=== PATIENT | male | born 1955 | race Caucasian/White ===

== ENCOUNTER 2017-03-09 14:00 | Outpatient (CLI) | payer OTHER ==
[~2017-03-09] VITALS: Ht 179.1 cm; Wt 90.3 kg
[~2017-03-09 14:00] MED LIST: ALBU8.5H4 IH; AMOX-358 PO; ASPI-875 PO; ATR20T PO; CARV3.122 PO; CLPD75T PO; GUAI-653 PO; HYDR-3062 PO; LORA10CA PO; OMG1KC PO; RANI300T4 PO; SIMV80TA3 PO
[2017-03-09] MEDS ORDERED: ASPI-999 PO (14:21)
[2017-03-09] MEDS ORDERED: RANI300T4 PO (14:21)
[2017-03-09] MEDS ORDERED: OMG1KC PO (14:21)
[2017-03-09] MEDS ORDERED: CARV3.122 PO (14:21)
[2017-03-09] MEDS ORDERED: ATOR40TA70 PO (14:21)
== END 2017-03-09 14:45 ==
LOC: PREOP 14:00
PROVIDERS: ATTEND Surgery
DX: Z01.818 Encounter for other preprocedural examination (principal)

== ENCOUNTER 2017-03-15 08:29 | Day surgery (SDC) | payer OTHER ==
[~2017-03-15] VITALS: Ht 179.1 cm; Wt 90.3 kg
[~2017-03-15 08:29] MED LIST changes: +ASPI-999 PO; +ATOR40TA70 PO
--- OUTSIDE RECORDS SUMMARY | 2017-03-15 08:33 | XMS REPORT ---
Author Author REZA HIDALGO Organization [employer] Address Unknown Phone Unavailable Care Team Providers Care Crime Specialist Name Role Phone REZA HIDALGO CP Unavailable Allergies No Known Allergies Problems Problem Type Condition Code Onset Dates Condition Status Problem Acute bronchitis 466.0 Active Problem Counseling on substance use and abuse V65.42 Active Problem Lateral epicondylitis of elbow 726.32 Active Problem Actinic keratosis 702.0 Active Problem Rash and other nonspecific skin eruption 782.1 Active Problem Other, multiple, and unspecified sites, insect bite, nonvenomous, infected 919.5 Active Problem Pain in joint, lower leg 719.46 Active Medications No Known Medications Results No Known Results Summary Purpose eClinicalWorks Submission
--- OUTSIDE RECORDS SUMMARY | 2017-03-15 08:33 | XMS REPORT ---
Author Author CHANEL KIDD Organization [employer] Address Unknown Phone Unavailable Care Team Providers Care Base Wad Operator Adjuster Name Role Phone CHANEL KIDD CP Unavailable Allergies No Known Allergies Problems Problem Type Condition ICD-9 Code Onset Dates Condition Status Assessment Dental examination V72.2 Active Problem Acute bronchitis 466.0 Active Problem Counseling on substance use and abuse V65.42 Active Problem Lateral epicondylitis of elbow 726.32 Active Problem Actinic keratosis 702.0 Active Problem Rash and other nonspecific skin eruption 782.1 Active Problem Other, multiple, and unspecified sites, insect bite, nonvenomous, infected 919.5 Active Problem Pain in joint, lower leg 719.46 Active Medications No Known Medications Procedures Procedure Coding System Code Date INTRAORL-PERIAPICAL 1 FILM 13153 CPT-4 D0220 Dec 12, 2014 EXTRAC ERUPTED TOOTH/EXPOSED ROOT CPT-4 D7140 Dec 12, 2014 LTD ORAL EVALUATION - PROBLEM FOCUS CPT-4 D0140 Dec 12, 2014 Results No Known Results Summary Purpose [employer]ClinicalWorks Submission
--- OUTSIDE RECORDS SUMMARY | 2017-03-15 08:33 | XMS REPORT ---
Author Author ROBERT Garcia Organization [facility] Address Unknown Care Team Providers Care Wheel Borer Name Role Phone Jose Unavailable PROBLEMS Type Condition ICD9-CM Code ILF91-SP Code Onset Dates Condition Status SNOMED Code Problem Counseling on substance use and abuse V65.42 Active 760245763 Problem Acute bronchitis 466.0 Active 62621752 Problem Lateral epicondylitis of elbow 726.32 Active 707258420 Problem Rash and other nonspecific skin eruption 782.1 Active 027351265 Problem Other, multiple, and unspecified sites, insect bite, nonvenomous, infected 919.5 Active 697628598 Problem Actinic keratosis 702.0 Active 358610 Problem Pain in joint, lower leg 719.46 Active 896941392 ALLERGIES No Known Allergies SOCIAL HISTORY Never Assessed PLAN OF CARE Activity Details Follow Up prn Reason:possible TE (pt hasn't decided on which option) sjf VITAL SIGNS Height 70 in 2016-05-18 Blood pressure systolic 141 mmHg 2016-05-18 Blood pressure diastolic 92 mmHg 2016-05-18 MEDICATIONS Medication Instructions Dosage Frequency Start Date End Date Duration Status Fish Oil 3 times per day Oct, Active Keflex 500 MG Orally 4 times a day 1 capsule 6h August, 10 days Active Mobic 15 MG Orally Once a day take 1 Tablet by Oral route 1 time per day 24h Jul, Active Aspirin Active Amoxicillin 500 MG Orally Four times a day 1 capsule 6h May, May, 7 days Active Lipitor 80 mg take 1 tablet (80 mg) by oral route once daily Dec, Active RESULTS No Results PROCEDURES Procedure Date Ordered Result Body Site LTD ORAL EVALUATION - PROBLEM FOCUS May 18, 2016 INTRAORL-PERIAPICAL 1 FILM 47591 May 18, 2016 IMMUNIZATIONS No Known Immunizations MEDICAL (GENERAL) HISTORY Type Description Date Medical History CARDIAC STENTS Medical History ARTHRITIS Medical History pt is taking prostate med. Surgical History stents were put into heart (pt believe thats how long its been) 2012 Surgical History colonoscapy and polup removed Mar 2016
--- OUTSIDE RECORDS SUMMARY | 2017-03-15 08:33 | XMS REPORT ---
Author Author REZA HIDALGO Organization [employer] Address Unknown Phone Unavailable Care Team Providers Care Treating And Pumping Supervisor Name Role Phone REZA HIDALGO CP Unavailable Allergies No Known Allergies Problems Problem Type Condition Code Onset Dates Condition Status Assessment Cellulitis and abscess of digit 681.9 Active Problem Acute bronchitis 466.0 Active Problem Counseling on substance use and abuse V65.42 Active Problem Lateral epicondylitis of elbow 726.32 Active Problem Actinic keratosis 702.0 Active Problem Rash and other nonspecific skin eruption 782.1 Active Problem Other, multiple, and unspecified sites, insect bite, nonvenomous, infected 919.5 Active Problem Pain in joint, lower leg 719.46 Active Medications Medication Code System Code Instructions Start Date End Date Status Dosage [facility] [address]-45 15 MG Orally Once a day July 27, 2013 take 1 Tablet by Oral route 1 time per day Results No Known Results Summary Purpose eClinicalWorks Submission
--- OUTSIDE RECORDS SUMMARY | 2017-03-15 08:34 | XMS REPORT | Continuity of Care Document ---
Author Author Formerly [facility] Address Unknown Phone Unavailable Allergies Active Description Code Type Severity Reaction Onset Reported/Identified Relationship to Patient Clinical Status Yes No Known Drug Allergies [id number] Drug Allergy Unknown N/ A 03/18/2016 Medications Problems Date Dx Coded Attending Type Code Diagnosis Diagnosed By 03/17/2009 724.5 BACKACHE, UNSPECIFIED 03/17/2009 ROBERT VALDEZ DO 724.5 BACKACHE, UNSPECIFIED 03/17/2009 ROBERT VALDEZ DO 724.5 BACKACHE, UNSPECIFIED 03/17/2009 REZA HIDALGO APRN 724.5 BACKACHE, UNSPECIFIED 03/17/2009 REZA HIDALGO APRN 724.5 BACKACHE, UNSPECIFIED 04/15/2009 724.2 LUMBAGO 04/15/2009 ROBERT VALDEZ DO 724.2 LUMBAGO 04/15/2009 ROBERT VALDEZ DO 724.2 LUMBAGO 04/15/2009 REZA HIDALGO APRN 724.2 LUMBAGO 04/15/2009 REZA HIDALGO APRN 724.2 LUMBAGO 11/01/2011 719.46 PAIN IN JOINT INVOLVING LOWER LEG 11/01/2011 ROBERT VALDEZ DO 719.46 PAIN IN JOINT INVOLVING LOWER LEG 11/01/2011 ROBERT VALDEZ DO 719.46 PAIN IN JOINT INVOLVING LOWER LEG 11/01/2011 REZA HIDALGO APRN 719.46 PAIN IN JOINT INVOLVING LOWER LEG 11/01/2011 REZA HIDALGO APRN 719.46 PAIN IN JOINT INVOLVING LOWER LEG 05/14/2012 Ot 272.4 HYPERLIPIDEMIA NEC/NOS 05/14/2012 Ot 305.1 TOBACCO USE DISORDER 05/14/2012 Ot 397.0 TRICUSPID VALVE DISEASE 05/14/2012 Ot 401.9 HYPERTENSION NOS 05/14/2012 Ot 411.1 INTERMED CORONARY SYND 05/14/2012 Ot 414.01 CORONARY ATHEROSCLEROSIS OF [place] CORON 05/14/2012 Ot 424.0 MITRAL VALVE DISORDER 05/14/2012 Ot 530.81 ESOPHAGEAL REFLUX 05/14/2012 Ot V45.82 PERCUTANEOUS TRANSLUM CORON ANGIOPLASTY 05/14/2012 Ot V58.63 LONG-TERM(CURRENT)USE OF ANTIPLATELET/AN 05/14/2012 Ot V58.69 OTH MED,LT,CURRENT USE 09/01/2012 RORY BECKER MD Ot 786.50 CHEST PAIN NOS 09/01/2012 RORY BECKER MD Ot 789.06 ABDOMINAL PAIN, EPIGASTRIC 09/13/2012 ROME CA MD Ot V45.82 PERCUTANEOUS TRANSLUM CORON ANGIOPLASTY 09/13/2012 ROME CA MD Ot V57.89 REHABILITATION PROC [facility] 10/17/2012 VALDEZ DO, ROBERT K 466.0 BRONCHITIS, ACUTE 10/17/2012 VALDEZ DO ROBERT K V65.42 COUNSELING - SMOKING CESSATION 10/17/2012 VALDEZ DO ROBERT K 466.0 BRONCHITIS, ACUTE 10/17/2012 VALDEZ DO ROBERT K V65.42 COUNSELING - SMOKING CESSATION 10/17/2012 REZA HIDALGO APRN 466.0 BRONCHITIS, ACUTE 10/17/2012 REZA HIDALGO APRN V65.42 COUNSELING - SMOKING CESSATION 10/17/2012 REZA HIDALGO APRN 466.0 BRONCHITIS, ACUTE 10/17/2012 REZA HIDALGO APRN V65.42 COUNSELING - SMOKING CESSATION 12/12/2012 VALDEZ DO ROBERT K 726.32 LATERAL EPICONDYLITIS [place] 12/12/2012 JOSÉ MIGUEL DO ROBERT K 726.32 LATERAL EPICONDYLITIS [place] 12/12/2012 REZA HIDALGO APRN 726.32 LATERAL EPICONDYLITIS [place] 12/12/2012 REZA HIDALGO APRN 726.32 LATERAL EPICONDYLITIS [place] 09/04/2013 JOSÉ MIGUEL DO ROBERT K 466.0 BRONCHITIS, ACUTE 09/04/2013 JOSÉ MIGUEL DO ROBERT K 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 09/04/2013 JOSÉ MIGUEL HAAS ROBERT K 782.1 RASH 09/04/2013 REZA HIDALGO APRN 466.0 BRONCHITIS, ACUTE 09/04/2013 REZA HIDALGO APRN 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 09/04/2013 REZA HIDALGO APRN 782.1 RASH 09/04/2013 REZA HIDALGO APRN 466.0 BRONCHITIS, ACUTE 09/04/2013 REZA HIDALGO APRN 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 09/04/2013 REZA HIDALGO APRN 782.1 RASH 12/12/2014 LIANNA SERRANO APRN Ot 525.10 UNSPEC ACQUIRED ABSENCE OF TEETH 12/12/2014 LIANNA SERRANO APRN Ot 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, UNSPECFIED 12/12/2014 LIANNA SERRANO APRN Ot 780.60 FEVER, UNSPECIFIED 03/26/2015 Ot 414.00 03/26/2015 Ot 786.50 07/24/2015 Ot E78.5 07/24/2015 Ot I10 07/24/2015 Ot I25.10 08/28/2015 Ot 414.00 CORON ATHEROSCLER NOS TYPE VESSEL, NATIV 08/28/2015 Ot 786.50 CHEST PAIN NOS 08/28/2015 Ot E78.5 HYPERLIPIDEMIA, UNSPECIFIED 08/28/2015 Ot I10 ESSENTIAL (PRIMARY) HYPERTENSION 08/28/2015 Ot I25.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 Visit Date/Time Discharge Status Pt. Type Provider Facility Loc./Unit Complaint [id number] 10/10/2013 14:40:00 10/10/2013 23: 59:59 CLS Outpatient REZA HIDALGO APRN [id number] 09/11/2013 13:46:00 09/11/2013 23: 59:59 CLS Outpatient REZA HIDALGO APRN [id number] 09/04/2013 10:45:00 09/04/2013 23: 59:59 CLS Outpatient ROBERT VALDEZ DO [id number] 12/12/2012 09:28:00 12/12/2012 23: 59:59 CLS Outpatient ROBERT VALDEZ DO [id number] 08/23/2012 08:47:00 Document Registration [id number] 03/09/2017 14:00:00 2016 14:45:00 DIS Outpatient ALEX SAKRAR DO [facility] PREOP COLONOSCOPY [id number] 03/23/2016 07:15:00 2015 09:50:00 DIS Outpatient ALEX SARKAR DO [facility] SDC SCREENING [id number] 03/18/2016 05:43:00 2015 14:18:00 DIS Outpatient ALEX SARKAR DO [facility] PREOP SCREENING [id number] 12/12/2014 12:06:00 2014 15:10:00 DIS Emergency LIANNA SERRANO APRN [facility] ER [id number] 09/06/2012 11:22:00 2012 14:01:00 DIS Outpatient ROME CA MD [facility] CR [id number] 09/01/2012 09:14:00 2012 11:08:00 DIS Emergency RORY BECKER MD [facility] ER [id number] 03/15/2017 09:45:00 PEN Preadmit ALEX SARKAR DO [facility] ENDO HX TUBULAR ADENOMA [id number] 07/23/2015 11:09:00 Document Registration [id number] 07/05/2012 07:38:00 Document Registration [id number] 05/13/2012 19:10:00 Document Registration
--- OUTSIDE RECORDS SUMMARY | 2017-03-15 08:34 | XMS REPORT ---
Author Author ROBERT Garcia Organization [facility] Address Unknown Care Team Providers Care Wax Cutter Name Role Phone Jose Unavailable PROBLEMS Type Condition ICD9-CM Code EGM19-MV Code Onset Dates Condition Status SNOMED Code Problem Counseling on substance use and abuse V65.42 Active 318240821 Problem Acute bronchitis 466.0 Active 39100152 Problem Lateral epicondylitis of elbow 726.32 Active 758839835 Problem Rash and other nonspecific skin eruption 782.1 Active 561581247 Problem Other, multiple, and unspecified sites, insect bite, nonvenomous, infected 919.5 Active 809975142 Problem Actinic keratosis 702.0 Active 218590 Problem Pain in joint, lower leg 719.46 Active 819947950 ALLERGIES No Known Allergies SOCIAL HISTORY Never Assessed PLAN OF CARE Activity Details Follow Up prn Reason:hygeine VITAL SIGNS Height 70 in 2016-06-02 Blood pressure systolic 118 mmHg 2016-06-02 Blood pressure diastolic 77 mmHg 2016-06-02 MEDICATIONS Medication Instructions Dosage Frequency Start Date End Date Duration Status Meloxicam Active Tamsulosin HCl Active Flexeril Active Aspirin Active Fish Oil 3 times per day Oct, Active Lipitor 80 mg take 1 tablet (80 mg) by oral route once daily Dec, Active Carvedilol Active Atorvastatin Calcium Active RESULTS No Results PROCEDURES Procedure Date Ordered Result Body Site EXTRAC ERUPTED TOOTH/EXPOSED ROOT Jun 02, 2016 EXTRAC ERUPTED TOOTH/EXPOSED ROOT Jun 02, 2016 IMMUNIZATIONS No Known Immunizations MEDICAL (GENERAL) HISTORY Type Description Date Medical History CARDIAC STENTS Medical History ARTHRITIS Medical History pt is taking prostate med. Surgical History stents were put into heart (pt believe thats how long its been) 2012 Surgical History colonoscapy and polup removed Mar 2016
[2017-03-15] MEDS ORDERED: LACTATED RINGERS 1,000 ML IV STA (08:39)
[2017-03-15 08:49] VITALS: BP 127/91
--- NOTE | 2017-03-15 09:01 | Progress Note-Pre Operative ---
Pre-Operative Progress Note H&P Reviewed The H&P was reviewed, patient examined and no changes noted. Date Seen by Provider: Mar 15, 2017 Time Seen by Provider: 09: Date H&P Reviewed: Mar 15, 2017 Time H&P Reviewed: 09:01 Pre-Operative Diagnosis: history tubular adenoma ALEX SARKAR DO Mar 15, 2017 9:01 am
[2017-03-15] MEDS ORDERED: LIDOCAINE PF 2% 5 ML (XYLOCAINE) VIAL ONE (09:03)
[2017-03-15] MEDS ORDERED: proPOfol 200 MG/20 ML (DIPRIVAN) VIAL IV ONE (09:03)
--- NOTE | 2017-03-15 09:46 | Progress Note-Post Operative ---
Post-Operative Progess Note Surgeon (s)/Residential Sales Manager (s) Surgeon ALEX SARKAR DO Residential Sales Manager: na Pre-Operative Diagnosis history tubular adenoma Post-Operative Diagnosis diverticulosis Procedure & Operative Findings Date of Procedure 03/15/17 Procedure Performed/Findings colonoscopy Anesthesia Type per housekeeping coordinator Estimated Blood Loss Estimated blood loss (mL): none Specimens/Packing Specimens Removed na ALEX SARKAR DO Mar 15, 2017 9:46 am
--- NOTE | 2017-03-15 09:47 | Discharge Inst-Simple/Standard ---
Discharge Inst-Standard Patient Instructions/Follow Up Plan of Care/Instructions/FU: Kamran 5 years for repeat colonoscpy, any problems before that be seen at that time. Activity as Tolerated: Yes Discharge Diet: Regular Diet (high fiber) ALEX SARKAR DO Mar 15, 2017 9:47 am
[2017-03-15 10:05] VITALS: BP 152/86
[2017-03-15 10:35] VITALS: BP 115/68
[2017-03-15 10:45] VITALS: BP 115/68
--- NOTE | 2017-03-15 14:07 | OPERATIVE REPORT ---
DATE OF SERVICE: 03/15/2017 PREOPERATIVE DIAGNOSIS: History of tubular adenoma. POSTOPERATIVE DIAGNOSIS: Diverticulosis. PROCEDURE: Colonoscopy. ANESTHESIA: Per DESIGN DRAFTER CHIEF. ESTIMATED BLOOD LOSS: None. COMPLICATIONS: None. INDICATIONS: The patient is a 61-year-old male with history of tubular adenoma. He understands risks and benefits of colonoscopy to reevaluate. He understands risks and benefits and wishes to proceed with procedure. Consent was signed and on the chart. DESCRIPTION OF PROCEDURE: The patient was taken to the endoscopy suite, placed in the left lateral recumbent position. Timeout was performed. Digital rectal exam was performed and there were no palpable polyps, mass or ulcerations. The scope was inserted in the rectum and advanced all the way to the cecum with minimal difficulty. Prep was adequate. There were no polyps, mass or ulcerations visualized within the cecum, ascending, transverse and descending colon. Within the sigmoid colon, some diverticulosis present. Scope was then slowly retracted back noting no other polyps, masses or ulcerations. Scope was retroflexed in the rectum, noting no other pathology except for some slight internal hemorrhoids. Scope was returned to its normal position, slowly withdrawn until completely removed, noting no other pathology. RECOMMENDATIONS: The patient will be recommended repeat colonoscopy in 5 years due to history of polyps. If he has any problems before that, he should be reevaluated at that time. The patient also recommended high fiber diet due to diverticulosis. Job ID: [id number] DocumentID: [id number] Dictated Date: 03/15/2017 09:50:02 Rafter Cutting Machine Operator Date: 03/15/2017 14:07:08 Dictated By: ALEX SARKAR DO
== END 2017-03-15 10:45 | disposition home or self-care (01) ==
LOC: ENDO 08:29
PROVIDERS: ATTEND Surgery
DX: K57.30 Diverticulosis of large intestine without perforation or abscess without bleeding (principal); I25.10 Atherosclerotic heart disease of native coronary artery without angina pectoris; E78.5 Hyperlipidemia, unspecified; I10 Essential (primary) hypertension; K21.9 Gastro-esophageal reflux disease without esophagitis; Z79.899 Other long term (current) drug therapy; Z79.82 Long term (current) use of aspirin; Z95.5 Presence of coronary angioplasty implant and graft; F17.210 Nicotine dependence, cigarettes, uncomplicated

== ENCOUNTER 2017-06-21 13:00 | Outpatient (CLI) | payer OTHER ==
[~2017-06-21] VITALS: Ht 179.1 cm; Wt 94.0 kg
[2017-06-21] MEDS ORDERED: MELO15TA39 PO (13:15)
[2017-06-21] MEDS ORDERED: NITR0.4T39 SL (13:15)
[2017-06-21] MEDS ORDERED: POLY17PO6 PO (13:15)
[2017-06-21] MEDS ORDERED: ATOR80TA76 PO (13:15)
[2017-06-21] MEDS ORDERED: FLUT9.9S NS (13:15)
[2017-06-21] MEDS ORDERED: CYCL10TA9 PO (13:15)
[2017-06-21] MEDS ORDERED: TAMS0.4C2 PO (13:15)
[2017-06-21] MEDS ORDERED: FINA5TAB6 PO (13:15)
[2017-06-21] MEDS ORDERED: CARV6.252 PO (13:15)
[2017-06-21 13:20] VITALS: BP 122/66
[2017-06-21 14:02] LABS: BASOPHILS % (AUTO) 0 % (0-10); EOSINOPHILS # (AUTO) 0.3 10^3/uL (0.0-0.3); EOSINOPHILS % (AUTO) 4 % (0-10); HEMATOCRIT 45 % (40-54); HEMOGLOBIN 16.3 G/DL (13.3-17.7); LYMPHOCYTES # (AUTO) 2.1 X 10^3 (1.0-4.0); LYMPHOCYTES % (AUTO) 27 % (12-44); MEAN CORPUSCULAR HEMOGLOBIN 35 PG (25-34); MEAN CORPUSCULAR HGB CONC 37 G/DL (32-36); MEAN CORPUSCULAR VOLUME 97 FL (80-99); MEAN PLATELET VOLUME 10.3 FL (7.4-10.4); MONOCYTES # (AUTO) 0.6 X 10^3 (0.0-1.0); MONOCYTES % (AUTO) 7 % (0-12); NEUTROPHILS % (AUTO) 62 % (42-75); PLATELET COUNT 223 10^3/uL (130-400); RED CELL DISTRIBUTION WIDTH 13.3 % (10.0-14.5)
== END 2017-06-21 14:11 | disposition home or self-care (01) ==
LOC: PREOP 13:00
PROVIDERS: ATTEND Urology
DX: Z01.812 Encounter for preprocedural laboratory examination (principal); Z11.2 Encounter for screening for other bacterial diseases; N40.1 Benign prostatic hyperplasia with lower urinary tract symptoms; R33.9 Retention of urine, unspecified; N32.81 Overactive bladder
CPT/HCPCS: 36415; 85025; 86850; 86900; 86901; 87081

== ENCOUNTER → 2017-08-22 | Outpatient (CLI) | payer OTHER ==
[~2017-08-22] MED LIST changes: +ATOR80TA76 PO; +CARV6.252 PO; +CATHETER FLUSH 10 ML SYR IV PRN; +CYCL10TA9 PO; +FINA5TAB6 PO; +FLUT9.9S NS; +MELO15TA39 PO; +NITR0.4T39 SL; +POLY17PO6 PO; +TAMS0.4C2 PO
[2017-08-22 09:08] VITALS: BP 123/64
--- NOTE | 2017-08-22 14:13 | STRESS TEST ---
DATE OF SERVICE: 08/22/2017 EXERCISE MYOVIEW STRESS TEST REPORT REFERRING PHYSICIAN: MAICOL Patricia Baseline heart rate is 70. Baseline blood pressure 119/60. Baseline EKG is sinus rhythm with no ischemic changes. In summary, the patient was injected with 10.53 mCi of technetium-99 Myoview and the resting images were obtained. Then, the patient started exercising on the treadmill with Philip protocol. At peak stress level a 29.9 mCi of technetium-99 Myoview were injected. The patient was able to exercise for a total of 10 minutes 25 seconds on standard Philip protocol. With peak exercise level, EKG was showing minimal nondiagnostic changes. Blood pressure was 172/59. During recovery, heart rate and blood pressure returned to baseline. EKG returned to baseline. The resting and stressed images were reviewed and compared in the short axis, horizontal long axis, and vertical long axis views. Review of the images showed diaphragmatic attenuation with good radiotracer uptake typical male pattern with mild decrease uptake at the mid to apical inferior wall with subtle reversibility. SSS is 3, SDS 3, TID value 0.94. On the gated images, the left ventricle appeared to be normal size with normal contractility, calculated ejection fraction 58%. CONCLUSION: 1. Excellent exercise tolerance, a total of 10 minutes 25 seconds on standard Philpi protocol, total of 12.1 METS achieving over 100% of maximum expected heart rate. 2. Appropriate heart rate and blood pressure response to exercise, returned to baseline during recovery. 3. Minimal nondiagnostic EKG changes with exercise, returned to baseline during recovery. 4. Diaphragmatic attenuation with typical male pattern. No significant ischemia or infarction on SPECT images. 5. Normal left ventricular size with normal contractility. Calculated ejection fraction 58%. Job ID: [id number] DocumentID: [id number] Dictated Date: 08/22/2017 11:27:16 Data Warehousing Manager Date: 08/22/2017 14:13:00 Dictated By: RICARDO LAM MD
== END ==
LOC: CARD 07:28
PROVIDERS: ATTEND Physician Assistant
DX: I25.10 Atherosclerotic heart disease of native coronary artery without angina pectoris (principal); R07.9 Chest pain, unspecified; I10 Essential (primary) hypertension; E78.5 Hyperlipidemia, unspecified; K21.9 Gastro-esophageal reflux disease without esophagitis; Z72.0 Tobacco use
CPT/HCPCS: 78452; 93017

== ENCOUNTER 2018-09-11 12:00 | Outpatient (CLI) | payer OTHER ==
[~2018-09-11] VITALS: Ht 177.8 cm; Wt 90.7 kg
[~2018-09-11 12:00] MED LIST changes: -CATHETER FLUSH 10 ML SYR IV PRN
[2018-09-11] MEDS ORDERED: TAMS0.4C98 PO (13:43)
[2018-09-11] MEDS ORDERED: ACET-77 PO (13:43)
== END 2018-09-11 14:10 | disposition home or self-care (01) ==
LOC: PREOP 12:00
PROVIDERS: ATTEND Surgery
DX: Z01.818 Encounter for other preprocedural examination (principal)

== ENCOUNTER 2018-09-14 08:59 | Day surgery (SDC) | payer OTHER ==
[~2018-09-14] VITALS: Ht 177.8 cm; Wt 90.7 kg
[2018-09-14] VITALS (11 sets, daily range): BP systolic 102–135; BP diastolic 62–83
[~2018-09-14 08:59] MED LIST changes: +ACET-77 PO; +TAMS0.4C98 PO
--- OUTSIDE RECORDS SUMMARY | 2018-09-14 09:03 | XMS REPORT ---
Author Author Migration, Doctor Organization [facility] Address Unknown Phone Unavailable Care Team Providers Care Cream Tester Name Role Phone Migration, Doctor Unavailable Unavailable PROBLEMS Unknown Problems ALLERGIES No Information ENCOUNTERS Encounter Location Date Diagnosis [facility] [id number] [place] [id number] Dec, Dental caries K02.9 [facility] [address] [address] Dec, Mouth pain K13.79 [facility] [address] [id number] Dec, 2017 Dental examination Z01.20 [facility] [place] [id number] [place] [phone] Jul, Prepatellar bursitis, unspecified laterality M70.40 [facility] [id number] [place] [phone] May, Dental examination Z01.20 [facility] [id number] [place] [id number] May, Dental examination Z01.20 [facility] [place] [id number] [place] [address] Jan, [facility] [place] [id number] [place] [phone] Jan, Cellulitis and abscess of digit 681.9 [facility] [id number] [place] [id number] Dec, Dental examination V72.2 [facility] [place] [id number] [place] [phone] August, Cellulitis and abscess of digit 681.9 [facility] [place] [facility] [address] [id number] [place] [address] 14 Jul, 2014 [facility] [address] [id number] [place] [address] 13 Jul, 2014 [facility] [address] [id number] [place] [address] 14 Oct, 2013 [facility] [address] [id number] [place] [address] Oct, [facility] [address] [id number] [place] [address] Oct, [facility] [address] [id number] [place] [address] Oct, [facility] [address] [id number] [place] [address] Sep, [facility] [address] [id number] [place] [address] Sep, [facility] [address] [id number] [place] [address] August, [facility] [address] [id number] [place] [address] August, [facility] [address] [id number] [place] [address] Jul, [facility] [address] [id number] [place] [address] Jul, [facility] [address] [id number] [place] [address] Dec, [facility] [place] [facility] [address] [id number] [place] [address] Oct, [facility] [place] [facility] [address] [id number] [place] [address] August, [facility] [address] [id number] [place] [address] Oct, [facility] [place] [address] [facility] [id number] [address] Feb, [facility] [place] [address] [id number] [address] Feb, [facility] [place] [address] [facility] [id number] [address] Mar, [facility] [place] [address] [id number] [address] Mar, IMMUNIZATIONS No Known Immunizations SOCIAL HISTORY Never Assessed REASON FOR VISIT [place] CARE VITAL SIGNS MEDICATIONS Unknown Medications RESULTS No Results PROCEDURES No Known procedures INSTRUCTIONS MEDICATIONS ADMINISTERED No Known Medications MEDICAL (GENERAL) HISTORY Type Description Date Medical History CARDIAC STENTS,placed in 2013 and 2008 Medical History ARTHRITIS Medical History pt is taking prostate med. Surgical History stents were put into heart (pt believe thats how long its been) 2012 Surgical History colonoscapy and polup removed Mar 2016
--- OUTSIDE RECORDS SUMMARY | 2018-09-14 09:03 | XMS REPORT ---
Author Author WENDY CASEY Organization [facility] Address [address] [place] [address] Care Team Providers Care Celluloid Trimmer Name Role Phone WENDY CASEY Unavailable PROBLEMS Unknown Problems ALLERGIES No Known Allergies ENCOUNTERS Encounter Location Date Diagnosis [facility] [address] [id number] Dec, Dental caries K02.9 [facility] [address] [address] Dec, Mouth pain K13.79 [facility] [address] [id number] Dec, Dental examination Z01.20 [facility] [id number] [place] [address] Jul, Prepatellar bursitis, unspecified laterality M70.40 [facility] [address] [id number] May, Dental examination Z01.20 [facility] [id number] [place] [id number] May, Dental examination Z01.20 [facility] [id number] [place] [address] Jan, [facility] [address] [address] 15 Jan, 2015 Cellulitis and abscess of digit 681.9 [facility] [address] [id number] Dec, 2014 Dental examination V72.2 [facility] [address] [address] August, Cellulitis and abscess of digit 681.9 [facility] [address] [id number] [place] [address] 14 Jul, 2014 [facility] [address] [id number] [place] [address] Jul, [facility] [address] [id number] [place] [address] Oct, [facility] [address] [id number] [place] [address] Oct, [facility] [address] [id number] [place] [address] Oct, [facility] [address] [id number] [place] [address] Oct, [facility] [address] [facility] [id number] [place] [address] Sep, [facility] [address] [id number] [place] [address] Sep, [facility] [address] [id number] [place] [address] August, [facility] [address] [facility] [id number] [place] [address] August, [facility] [address] [id number] [place] [address] Jul, [facility] [address] [id number] [place] [address] Jul, [facility] [address] [id number] [place] [address] Dec, [facility] [address] [id number] [place] [address] Oct, [facility] [address] [id number] [place] [address] August, [facility] [address] [facility] [id number] [place] [address] Oct, [facility] [address] [facility] [id number] [place] [address] Feb, [facility] [address] [facility] [id number] [place] [address] Feb, [facility] [address] [facility] [id number] [place] [address] Mar, [facility] [address] [facility] [id number] [place] [address] Mar, IMMUNIZATIONS No Known Immunizations SOCIAL HISTORY Never Assessed REASON FOR VISIT tooth pain right upper started yestereday JStrasserRN PLAN OF CARE Activity Details Follow Up w/ dental, 2 - 3 Days Reason:dental pain/infected tooth VITAL SIGNS Height 70 in 2017-12-31 Weight 200.8 lbs 2017-12-31 Temperature 98.3 degrees Fahrenheit 2017-12-31 Heart Rate 80 bpm 2017-12-31 Respiratory Rate 20 2017-12-31 BMI 28.81 kg/m2 2017-12-31 Blood pressure systolic 120 mmHg 2017-12-31 Blood pressure diastolic 74 mmHg 2017-12-31 MEDICATIONS Medication Instructions Dosage Frequency Start Date End Date Duration Status Carvedilol Active Tamsulosin HCl Active Fish Oil 3 times per day Oct, Active Amoxicillin 500 mg Orally every 8 hrs 1 capsule 8h Dec, Jan, 10 day(s) Active Nicotine Active Finasteride Active Cyclobenzaprine HCl Active Fluticasone Propionate Active Nitroglycerin Active Atorvastatin Calcium Active Acetaminophen Active Ranitidine Active Aspirin Active Polyethylene Glycol Active Meloxicam Active RESULTS No Results PROCEDURES No Known procedures [...]
--- OUTSIDE RECORDS SUMMARY | 2018-09-14 09:03 | XMS REPORT ---
Author Author Migration, Doctor Organization [facility] Address Unknown Phone Unavailable Care Team Providers Care Weatherization Director Name Role Phone Migration, Doctor Unavailable Unavailable PROBLEMS Unknown Problems ALLERGIES No Information ENCOUNTERS Encounter Location Date Diagnosis [facility] [id number] [place] [id number] Dec, Dental caries K02.9 [facility] [address] [address] Dec, Mouth pain K13.79 [facility] [address] [id number] Dec, 2017 Dental examination Z01.20 [facility] [id number] [place] [address] Jul, Prepatellar bursitis, unspecified laterality M70.40 [facility] [id number] [place] [address] [id number] May, Dental examination Z01.20 [facility] [id number] [place] [id number] May, Dental examination Z01.20 [facility] [id number] [place] [address] Jan, [facility] [id number] [place] [address] Jan, Cellulitis and abscess of digit 681.9 [facility] [id number] [place] [id number] Dec, Dental examination V72.2 [facility] [id number] [place] [address] August, Cellulitis and abscess of digit 681.9 [facility] [place] [facility] [address] [id number] [place] [address] 14 Jul, 2014 [facility] [address] [id number] [place] [address] 13 Jul, 2014 [facility] [address] [id number] [place] [address] 14 Oct, 2013 [facility] [address] [id number] [place] [address] Oct, [facility] [address] [id number] [place] [address] Oct, [facility] [address] [id number] [place] [address] Oct, [facility] [address] [id number] [place] [address] Sep, [facility] [address] [id number] [place] [address] Sep, [facility] [address] [id number] [place] [address] August, [facility] [address] [id number] [place] [address] August, [facility] [address] [id number] [place] [address] Jul, [facility] [address] [id number] [place] [address] Jul, [facility] [address] [id number] [place] [address] Dec, [facility] [place] [facility] [address] [id number] [place] [address] Oct, [facility] [place] [facility] [address] [id number] [place] [address] August, [facility] [address] [id number] [place] [address] Oct, [facility] [address] [facility] [id number] [place] [address] Feb, [facility] [address] [facility] [id number], [place] [address] Feb, [facility] [address] [facility] [id number], [place] [address] Mar, [facility] [address] [facility] [id number], [place] [address] Mar, IMMUNIZATIONS No Known Immunizations SOCIAL HISTORY Never Assessed REASON FOR VISIT [facility] [place] VITAL SIGNS MEDICATIONS Medication Instructions Dosage Frequency Start Date End Date Duration Status Fish Oil 3 times per day Oct, Active Levaquin 500 mg 1 tablet by Oral route every 24 hours for 10 days Oct, Active Azithromycin 250 mg 2 Tablet by Oral route on day 1 then take 1 daily for 4 days August, Active Lipitor 80 mg take 1 tablet (80 mg) by oral route once daily Dec, Active Hydrocortisone 1 % 1 veronica by Topical route 2 times per day August, Active Mobic 15 mg take 1 Tablet by Oral route 1 time per day Jul, Active MethylPREDNISolone 4 mg by Oral route every day for 6 days as directed per dose pack Oct, Active RESULTS No Results PROCEDURES No Known [...]
--- OUTSIDE RECORDS SUMMARY | 2018-09-14 09:03 | XMS REPORT ---
Author Author POPPY ARGUELLO [facility] Address Unknown Care Team Providers Care Distributor Sales Consultant Name Role Phone POPPY ARGUELLO Unavailable PROBLEMS Unknown Problems ALLERGIES No Known Allergies ENCOUNTERS Encounter Location Date Diagnosis [facility] [address] [id number] Dec, Dental caries K02.9 [facility] [address] [address] Dec, Mouth pain K13.79 [facility] [address] [id number] Dec, Dental examination Z01.20 [facility] [id number] [place] [address] Jul, Prepatellar bursitis, unspecified laterality M70.40 [facility] [address] [id number] May, Dental examination Z01.20 [facility] [address] [id number] May, Dental examination Z01.20 [facility] [id number] [place] [address] Jan, [facility] [id number] [place] [address] Jan, Cellulitis and abscess of digit 681.9 [facility] [address] [id number] Dec, Dental examination V72.2 [facility] [address] [address] August, Cellulitis and abscess of digit 681.9 [facility] [place] [facility] [address] [id number] [place] [address] 14 Jul, 2014 [facility] [place] [facility] [address] [id number] [place] [address] Jul, [facility] [place] [facility] [address] [id number] [place] [address] Oct, [facility] [place] [facility] [address] [id number] [place] [address] Oct, [facility] [place] [facility] [address] [id number] [place] [address] Oct, [facility] [place] [facility] [address] [id number] [place] [address] Oct, [facility] [place] [facility] [address] [id number] [place] [address] Sep, [facility] [place] [facility] [address] [id number] [place] [address] Sep, [facility] [place] [facility] [address] [id number] [place] [address] August, [facility] [place] [facility] [address] [id number] [place] [address] August, [facility] [place] [facility] [address] [id number] [place] [address] Jul, [facility] [place] [facility] [address] [id number], [place] [address] Jul, [facility] [place] [facility] [address] [id number] [place] [address] Dec, [facility] [place] [facility] [address] [id number] [place] [address] Oct, [facility] [place] [facility] [address] [id number] [place] [address] August, [facility] [place] [facility] [address] [id number], [place] [address] Oct, [facility] [address] [facility] [id number] [place] [address] Feb, [facility] [address] [facility] [id number], [place] [address] Feb, [facility] [address] [facility] [id number], [place] [address] Mar, [facility] [address] [facility] [id number], [place] [address] Mar, IMMUNIZATIONS No Known Immunizations SOCIAL HISTORY Never Assessed [facility]IT [facility] Activity Details Follow Up prn Reason:as needed VITAL SIGNS Height 70 in 2018-01-05 Temperature 93.1 degrees Fahrenheit 2018-01-05 Blood pressure systolic 143 mmHg 2018-01-05 Blood pressure diastolic 87 mmHg 2018-01-05 MEDICATIONS Medication Instructions Dosage Frequency Start Date End Date Duration Status Cyclobenzaprine HCl Active Polyethylene Glycol Active Atorvastatin Calcium Active Nicotine Active Nitroglycerin Active Tamsulosin HCl Active Fish Oil 3 times per day Oct, Active Meloxicam Active Acetaminophen Active Finasteride Active Amoxicillin 500 mg Orally every 8 hrs 1 capsule 8h Dec, Jan, 10 day(s) Active Fluticasone Propionate Active Ranitidine Active Carvedilol Active Aspirin Active RESULTS No Results PROCEDURES Procedure Date Ordered Result Body Site SURG REMOVAL ERUPTED TOOTH Jan 05, 2018 INSTRUCTIONS MEDICATIONS ADMINISTERED No Known Medications MEDICAL (GENERAL) HISTORY Type Description Date Medical History CARDIAC STENTS,placed in 2013 and 2008 Medical History ARTHRITIS Medical History pt is taking prostate med. Surgical History stents were put into heart (pt believe thats how long its been) 2012 Surgical History colonoscapy and polup removed Mar 2016
--- OUTSIDE RECORDS SUMMARY | 2018-09-14 09:04 | XMS REPORT | Continuity of Care Document ---
Author Author [facility] Organization [facility] Address Unknown Phone Unavailable Care Team Providers Care Deputy Sheriff Court Services Name Role Phone [facility] Insurance Providers Payer Name Policy Number Subscriber Name Relationship [facility] [id number] Bladimir Arauz 01 Self / Same As Patient Advance Directives Directive Response Recorded Date Advance Directives N 09/01/12 9:11am Health Care Power of Orthopedic Designer N 09/01/12 9:11am Organ Donor N 09/01/12 9:11am Problems No Known Problems or Medical conditions. Social History History Response Recorded Date/Time Alcohol Use Denies Use 09/01/12 9:11am Recreational Drug Use N 09/01/12 9:11am Recent Foreign Travel N 09/01/12 9:11am Recent Infectious Disease Exposure N 09/01/12 9:11am Allergies, Adverse Reactions, Alerts Allergen Type Severity Reaction Last Updated No Known Drug Allergies 05/13/12 Medications Medication Dose Units Route Sig Qty Days Fish Oil 3000 Mg PO DAILY Atorvastatin Calcium (Lipitor 20MG) 80 Mg PO HS Aspirin ([place] Aspirin) 81 Mg PO DAILY Ranitidine Hcl 300 Mg PO BID Guaifenesin/Dextromethorphan (Mucus And Cough Relief Tablet) 1 Each PO NEEDED Carvedilol 1 Each PO BID Clopidogrel Bisulfate (Plavix) 1 Each PO DAILY Simvastatin 80 Mg PO HS Immunizations Name Given Type Date of Pneumonia Vaccine 05/13/09 H Response Recorded Date/Time Status not known Unknown Results No Known Relevant Diagnostic Tests, Laboratory Data and/or Discharge Summary. Encounters Encounter Location Date/Time Departed Emergency Room [facility] 09/01/12 9:14am
--- OUTSIDE RECORDS SUMMARY | 2018-09-14 09:04 | XMS REPORT | Continuity of Care Document ---
Author Organization Unknown Address Unknown Allergies Active Description Code Type Severity Reaction Onset Reported/Identified Relationship to Patient Clinical Status Yes No Known Drug Allergies [id number] Drug Allergy Unknown N/A 06/21/2017 Medications There is no data. Problems Date Dx Coded Attending Type Code [...] SYND 05/14/2012 Ot 414.01 CORONARY ATHEROSCLEROSIS OF [place] CORON 05/14/2012 Ot 424.0 MITRAL VALVE DISORDER [...] ROME CA MD Ot V57.89 REHABILITATION PROC [facility] 10/17/2012 VALDEZ DO ROBERT K 466.0 BRONCHITIS, ACUTE 10/17/2012 MARIA LUZ VALDEZ DOA K V65.42 COUNSELING - SMOKING CESSATION 10/17/2012 JOSÉ MIGUEL HAAS ROBERT K 466.0 BRONCHITIS, ACUTE 10/17/2012 JOSÉ MIGUEL HAAS ROBERT K V65.42 COUNSELING - SMOKING CESSATION 10/17/2012 REZA HIDALGO APRN 466.0 BRONCHITIS, ACUTE 10/17/2012 REZA HIDALGO APRN V65.42 COUNSELING - SMOKING CESSATION 10/17/2012 REZA HIDALGO APRN 466.0 BRONCHITIS, ACUTE 10/17/2012 REZA HIDALGO APRN V65.42 COUNSELING - SMOKING CESSATION 12/12/2012 MARIA LUZ VALDEZ DOA K 726.32 LATERAL EPICONDYLITIS [place] 12/12/2012 MARIA LUZ VALDEZ DOA K 726.32 LATERAL EPICONDYLITIS [place] 12/12/2012 REZA HIDALGO APRN 726.32 LATERAL EPICONDYLITIS [place] 12/12/2012 REZA HIDALGO APRN 726.32 LATERAL EPICONDYLITIS [place] 09/04/2013 MARIA LUZ VALDEZ DOA K 466.0 BRONCHITIS, ACUTE 09/04/2013 MARIA LUZ VALDEZ DOA K 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 09/04/2013 MARIA LUZ VALDEZ DOA K 782.1 RASH 09/04/2013 REZA HIDALGO APRN 466.0 BRONCHITIS, ACUTE 09/04/2013 REZA HIDALGO APRN 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 09/04/2013 REZA HIDALGO APRN 782.1 RASH 09/04/2013 REZA HIDALGO APRN 466.0 BRONCHITIS, ACUTE 09/04/2013 REZA HIDALGO APRN 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 09/04/2013 GWEN JESUSFelix REZA T 782.1 RASH 12/12/2014 LIANNA SERRANO GLASSWARE VERIFIER Ot 525.10 UNSPEC ACQUIRED ABSENCE OF TEETH 12/12/2014 LIANNA SERRANO GLASSWARE VERIFIER Ot 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, UNSPECFIED 12/12/2014 LIANNA SERRANO GLASSWARE VERIFIER Ot 780.60 FEVER, UNSPECIFIED 03/26/2015 Ot 414.00 03/26/2015 Ot 786.50 07/24/2015 Ot E78.5 07/24/2015 Ot I10 07/24/2015 Ot I25.10 08/28/2015 Ot 414.00 CORON ATHEROSCLER NOS TYPE VESSEL, NATIV 08/28/2015 Ot 786.50 CHEST PAIN NOS 08/28/2015 Ot E78.5 HYPERLIPIDEMIA, UNSPECIFIED 08/28/2015 Ot I10 ESSENTIAL (PRIMARY) HYPERTENSION 08/28/2015 Ot I25.10 ATHSCL HEART DISEASE OF [place] CORONARY 03/18/2016 ALEX SARKAR DO Ot Z01.818 ENCOUNTER FOR OTHER PREPROCEDURAL EXAMIN 03/18/2016 ALEX SARKAR DO Ot Z12.11 ENCOUNTER FOR SCREENING FOR MALIGNANT NE 03/23/2016 ALEX SARKAR DO Ot D12.7 BENIGN NEOPLASM OF RECTOSIGMOID JUNCTION 03/23/2016 ALEX SARKAR DO Ot Z12.11 ENCOUNTER FOR SCREENING FOR MALIGNANT NE 04/08/2016 ALEX SARKAR DO Ot D12.7 BENIGN NEOPLASM OF RECTOSIGMOID JUNCTION 04/08/2016 ALEX SARKAR DO Ot Z12.11 ENCOUNTER FOR SCREENING FOR MALIGNANT NE 03/09/2017 ALEX SARKAR DO Ot Z01.818 ENCOUNTER FOR OTHER PREPROCEDURAL EXAMIN 03/15/2017 ALEX SARKAR DO Ot E78.5 HYPERLIPIDEMIA, UNSPECIFIED 03/15/2017 ALEX SARKAR DO Ot F17.210 NICOTINE DEPENDENCE, CIGARETTES, UNCOMPL 03/15/2017 ALEX SARKAR DO Ot I10 ESSENTIAL (PRIMARY) HYPERTENSION 03/15/2017 ALEX SARKAR DO Ot I25.10 ATHSCL HEART DISEASE OF [place] CORONARY 03/15/2017 ALEX SARKAR DO Ot K21.9 GASTRO-ESOPHAGEAL REFLUX DISEASE WITHOUT 03/15/2017 ALEX SARKAR DO Ot K57.30 DVRTCLOS OF LG INT W/O PERFORATION OR AB 03/15/2017 ALEX SARKAR DO Ot Z79.82 CUSTODIAL (CURRENT) USE OF ASPIRIN 03/15/2017 ALEX SARKAR DO Ot Z79.899 OTHER PURCHASE REQUEST EDITOR (CURRENT) DRUG THERAPY 03/15/2017 ALEX SARKAR DO Ot Z95.5 PRESENCE OF CORONARY ANGIOPLASTY IMPLANT 03/16/2017 ALEX SARKAR DO Ot E78.5 HYPERLIPIDEMIA, UNSPECIFIED 03/16/2017 ALEX SARKAR DO Ot F17.210 NICOTINE DEPENDENCE, CIGARETTES, UNCOMPL 03/16/2017 ALEX SARKAR DO Ot I10 ESSENTIAL (PRIMARY) HYPERTENSION 03/16/2017 ALEX SARKAR DO Ot I25.10 ATHSCL HEART DISEASE OF [place] CORONARY 03/16/2017 ALEX SARKAR DO Ot K21.9 GASTRO-ESOPHAGEAL REFLUX DISEASE WITHOUT 03/16/2017 ALEX SARKAR DO Ot K57.30 DVRTCLOS OF LG INT W/O PERFORATION OR AB 03/16/2017 ALEX SARKAR DO Ot Z79.82 CUSTODIAL (CURRENT) USE OF ASPIRIN 03/16/2017 ALEX SARKAR DO Ot Z79.899 OTHER PURCHASE REQUEST EDITOR (CURRENT) DRUG THERAPY 03/16/2017 ALEX SARKAR DO Ot Z95.5 PRESENCE OF CORONARY ANGIOPLASTY IMPLANT 06/21/2017 Ot 414.00 CORON ATHEROSCLER NOS TYPE VESSEL, NATIV 06/21/2017 Ot 786.50 CHEST PAIN NOS 06/21/2017 Ot E78.5 HYPERLIPIDEMIA, UNSPECIFIED 06/21/2017 Ot I10 ESSENTIAL (PRIMARY) HYPERTENSION 06/21/2017 Ot I25.10 ATHSCL HEART DISEASE OF [place] CORONARY 06/22/2017 DENIA PEREYRA MD Ot N32.81 OVERACTIVE BLADDER 06/22/2017 DENIA PEREYRA MD Ot N40.1 BENIGN PROSTATIC HYPERPLASIA WITH LOWER 06/22/2017 DENIA PEREYRA MD Ot R33.9 RETENTION OF URINE, UNSPECIFIED 06/22/2017 DENIA PEREYRA MD Ot Z01.812 ENCOUNTER FOR PREPROCEDURAL LABORATORY E 06/22/2017 DENIA PEREYRA MD Ot Z11.2 ENCOUNTER FOR SCREENING FOR OTHER BACTER 08/23/2017 MITCH ROLLE Ot E78.5 HYPERLIPIDEMIA, UNSPECIFIED 08/23/2017 MITCH ROLLE Ot I10 ESSENTIAL (PRIMARY) HYPERTENSION 08/23/2017 MITCH ROLLE Ot I25.10 ATHSCL HEART DISEASE OF [place] CORONARY 08/23/2017 MITCH ROLLE Ot K21.9 GASTRO-ESOPHAGEAL REFLUX DISEASE WITHOUT 08/23/2017 MITCH ROLLE Ot R07.9 CHEST PAIN, UNSPECIFIED 08/23/2017 MITCH ROLLE Ot Z72.0 TOBACCO USE 09/08/2018 ALEX SARKAR DO, Ot Z01.818 ENCOUNTER FOR OTHER PREPROCEDURAL EXAMIN 09/08/2018 ALEX SARKAR DO, Ot Z01.818 ENCOUNTER FOR OTHER PREPROCEDURAL EXAMIN 09/11/2018 ALEX SARKAR DO, Ot Z01.818 ENCOUNTER FOR OTHER PREPROCEDURAL EXAMIN 09/11/2018 ALEX SARKAR DO Ot Z01.818 ENCOUNTER FOR OTHER PREPROCEDURAL EXAMIN 09/12/2018 ALEX SARKAR DO, Ot Z01.818 ENCOUNTER FOR OTHER PREPROCEDURAL EXAMIN Procedures Code Description [place] [address] CRYOTHERAPY OF SKIN 09/11/201393814 CRYOTHERAPY OF SKIN 10/10/2013 Results Test Result Range Complete blood count (CBC) with automated white blood cell (WBC) differential - 06/21/17 13:35 Blood leukocytes automated count (number/volume) 8.0 10*3/uL 4.3-11.0 Blood erythrocytes automated count (number/volume) 4.60 10*6/uL 4.35-5.85 Venous blood hemoglobin measurement (mass/volume) 16.3 g/dL 13.3-17.7 Blood hematocrit (volume fraction) 45 % 40-54 Automated erythrocyte mean corpuscular volume 97 [foz_us] 80-99 Automated erythrocyte mean corpuscular hemoglobin (mass per erythrocyte) 35 pg 25-34 Automated erythrocyte mean corpuscular hemoglobin concentration measurement (mass/volume) 37 g/dL 32-36 Automated erythrocyte distribution width ratio 13.3 % 10.0- 14.5 Automated blood platelet count (count/volume) 223 10*3/uL 130-400 Automated blood platelet mean volume measurement 10.3 [foz_us] 7.4-10.4 Automated blood neutrophils/100 leukocytes 62 % 42-75 Automated blood lymphocytes/100 leukocytes 27 % 12-44 Blood monocytes/100 leukocytes 7 % 0-12 Automated blood eosinophils/100 leukocytes 4 % 0-10 Automated blood basophils/100 leukocytes 0 % 0-10 Blood neutrophils automated count (number/volume) 5.0 10*3 1.8-7.8 Blood lymphocytes automated count (number/volume) 2.1 10*3 1.0-4.0 Blood monocytes automated count (number/volume) 0.6 10*3 0.0- 1.0 Automated eosinophil count 0.3 10*3/uL 0.0-0.3 Automated blood basophil count (count/volume) 0.0 10*3/uL 0.0-0.1 Blood type T Indirect antibody screen panel - 06/21/17 13:35 ABO+Rh group AP NRG Transfusion band number TNP NRG Blood group antibody screen NEGATIVE NRG Methicillin resistant Staphylococcus aureus (MRSA) screening culture - 06/21/17 13:35 Methicillin resistant Staphylococcus aureus (MRSA) screening culture NEG NRG Encounters ACCT No. Visit Date/Time Discharge Status Pt. Type Provider Facility Loc./Unit Complaint [id number] 10/10/2013 14:40:00 10/10/2013 23:59:59 CLS Outpatient REZA HIDALGO APRN [id number] 09/11/2013 13:46:00 09/11/2013 23:59:59 CLS Outpatient REZA HIDALGO APRN [id number] 09/04/2013 10:45:00 09/04/2013 23:59:59 CLS Outpatient ROBERT VALDEZ DO [id number] 12/12/2012 09:28:00 12/12/2012 23:59:59 CLS Outpatient ROBERT VALDEZ DO [id number] 08/23/2012 08:47:00 Document Registration [id number] 09/11/2018 12:00:00 09/11/2018 14:10:00 DIS Outpatient ALEX SARKAR DO [facility] PREOP LEFT INGUINAL HERNIA [id number] 08/22/2017 07:28:00 08/22/2017 23:59:59 CLS Outpatient MITCH ROLLE [facility] CARD CAD,CAROTID ARTERY STENOSIS [id number] 06/28/2017 08:00:00 06/28/2017 23:59:59 CLS [facility]read[facility]OVERACTIVE BLADDER [id number] 06/21/2017 13:00:00 06/21/2017 14:11:00 DIS Outpatient DENIA PEREYRA MD [facility] PREOP BPH WITH RETENTION, OVERACTIVE BLADDER [id number] 03/15/2017 08:29:00 03/15/2017 10:45:00 DIS Outpatient ALEX SARKAR DO [facility] ENDO HX TUBULAR ADENOMA [id number] 03/09/2017 14:00:00 03/09/2017 14:45:00 DIS Outpatient ALEX SARKAR DO [facility] PREOP COLONOSCOPY [id number] 03/23/2016 07:15:00 03/23/2016 09:50:00 DIS [facility] [id number] 03/18/2016 05:43:00 03/18/2016 14:18:00 DIS Outpatient ALEX SARKAR DO [facility] PREOP SCREENING [id number] 12/12/2014 12:06:00 12/12/2014 15:10:00 DIS Emergency LIANNA SERRANO APRN [facility] ER ELEV BP [id number] 09/06/2012 11:22:00 09/13/2012 14:01:00 DIS Outpatient ROME CA MD [facility] CR STENT,AMI,PTCA [id number] 09/01/2012 09:14:00 09/01/2012 11:08:00 DIS Emergency RORY BECKER MD [facility] ER CHEST/UPPER BACK/LEFT ARM PAIN [id number] 09/14/2018 10:40:00 PEN Preadmit ALEX SARKAR DO [facility] LEFT INGUINAL HERNIA [id number] 07/23/2015 11:09:00 Document Registration [id number] 07/05/2012 07:38:00 Document Registration [id number] 05/13/2012 19:10:00 Document Registration
[2018-09-14] MEDS ORDERED: ceFAZolin 2 GM/50 ML NS 50 ML ONE (09:27)
[2018-09-14] MEDS: LACTATED RINGERS 1,000 ML IV PRN ×2 (09:35→13:30)
[2018-09-14] MEDS ORDERED: ceFAZolin 2 GM/50 ML NS 50 ML IV ONE (09:45)
[2018-09-14] MEDS ORDERED: BUP/EPI 0.5% 1:200,000 (SENSORCAINE) 30 ML VIAL ONE (11:18)
[2018-09-14] MEDS ORDERED: LIDOCAINE 1% INJ 20 ML 20 ML VIAL ONE (11:19)
--- NOTE | 2018-09-14 11:19 | Progress Note-Pre Operative ---
Pre-Operative Progress Note H&P Reviewed The H&P was reviewed, patient examined and no changes noted. Date Seen by Provider: Sep 14, 2018 Time Seen by Provider: 11:19 Date H&P Reviewed: Sep 14, 2018 Time H&P Reviewed: 11:19 Pre-Operative Diagnosis: left inguinal hernia ALEX SARKAR DO Sep 14, 2018 11:19
[2018-09-14] MEDS ORDERED: MIDAZOLAM 2 MG/2 ML (VERSED) VIAL ONE (12:03)
[2018-09-14] MEDS ORDERED: GLYCOPYRROLATE 0.2 MG/ML (ROBINUL) 2 ML VIAL ONE ×2 (12:03→12:55)
[2018-09-14] MEDS ORDERED: DEXAMETHASONE 10 MG/ML (DECADRON) 1 ML VIAL ONE (12:03)
[2018-09-14] MEDS ORDERED: proPOfol 200 MG/20 ML (DIPRIVAN) VIAL IV ONE (12:03)
[2018-09-14] MEDS ORDERED: ROCURONIUM 10 MG/ML 5 ML SYRINGE IV ONE (12:03)
[2018-09-14] MEDS ORDERED: LIDOCAINE PF 2% 5 ML (XYLOCAINE) VIAL ONE (12:03)
[2018-09-14] MEDS ORDERED: ONDANSETRON 4 MG/2 ML (SDV) Z0FRAN ONE (12:03)
[2018-09-14] MEDS ORDERED: fentaNYL INJECTION 100 MCG/2 ML AMP ONE (12:04)
[2018-09-14] MEDS ORDERED: SEVOFLURANE (ULTANE) 15 ML INHAL SOLN ONE (12:36)
[2018-09-14] MEDS ORDERED: ROPIVACAINE 5MG/ML 30ML VIAL ONE (12:55)
[2018-09-14] MEDS ORDERED: NEOSTIGMINE 1 MG/ML 5 ML SYRINGE ONE (12:55)
--- NOTE | 2018-09-14 13:11 | Progress Note-Post Operative ---
Post-Operative Progess Note Surgeon (s)/Cash Management Associate (s) Surgeon ALEX SARKAR DO Cash Management Associate: Dr. Moore Pre-Operative Diagnosis left inguinal hernia Post-Operative Diagnosis same, cord lipoma Procedure & Operative Findings Date of Procedure 09/14/18 Procedure Performed/Findings left inguinal hernia repair and excision cord lipoma Anesthesia Type gen Estimated Blood Loss Estimated blood loss (mL): min Specimens/Packing Specimens Removed lipoma, hernia sac ALEX SARKAR DO Sep 14, 2018 13:11
[2018-09-14] MEDS ORDERED: ACHD5005 PO (13:12)
[2018-09-14] MEDS ORDERED: DOCU-143 PO (13:12)
--- NOTE | 2018-09-14 13:16 | Discharge Inst-Simple/Standard ---
Discharge Inst-Standard Discharge Medications New, Converted or Re-Newed RX: RX on Chart Patient Instructions/Follow Up Plan of Care/Instructions/FU: 2-3 weeks Kamran Activity as Tolerated: No Discharge Diet: Regular Diet Other Inst to Patient Follow up Appt: Make appointment for 2-3 week. Instructions: No lifting greater than 10 pounds. No strenuous activity. May shower in 24 hours, no tub bath or soaking. Use incentive spirometer at home as directed. No Smoking Skin/Wound Care: You have special glue over incisions it will fall off on its own. Symptoms to Report: Appetite Changes, Extremity Discoloration, Numbness/Tingling, Swelling Increased, Bleeding Excessive, Eyesight Changes, Pain Increased, Urine Color Change, Constipation(Persistent), Fever over 101 degree F, Pain/Pressure in ch est, Urinating Difficulty, Cough Up/Vomit Blood, Heart Beat Irreg/Pounding, Pain/Pressure in jaw, Vaginal Bleeding Increase, Cramps in feet or legs, Lightheadedness, Pain/Pressure in shoulder, Diarrhea(Persistent), Memory Changes Suddenly, Questions/Concerns, Weight gain consecutive days, Dizziness/Fainting, Nausea/Vomiting, Shortness of Breath, Weight gain over 2 pounds If questions or concerns contact your physician Or seek help at emergency department. ALEX SARKAR DO Sep 14, 2018 13:16
[2018-09-14] MEDS ORDERED: HYDROmorphone 2 MG/ML VIAL (DILAUDID) IV ONE (13:45)
[2018-09-14] MEDS ORDERED: ONDANSETRON 4 MG/2 ML (SDV) Z0FRAN IVP PRN (13:45)
--- NOTE | 2018-09-14 14:30 | Anesthesia-General Post-Op ---
General Patient Condition Mental Status/LOC: Same as Preop Cardiovascular: Satisfactory Nausea/Vomiting: Absent Respiratory: Satisfactory Pain: Controlled Complications: Absent Post Op Complications Complications None Follow Up Care/Instructions Patient Instructions None needed. Anesthesia/Patient Condition Patient Condition Patient is doing well, no complaints, stable vital signs, no apparent adverse anesthesia problems. No complications reported per nursing. JOSEFINA HARDING CRNA Sep 14, 2018 14:30
--- NOTE | 2018-09-15 03:47 | OPERATIVE REPORT ---
DATE OF SERVICE: 09/14/2018 PREOPERATIVE DIAGNOSIS: Left inguinal hernia. POSTOPERATIVE DIAGNOSES: Cord lipoma, left inguinal hernia. PROCEDURE: Left inguinal hernia repair and excision of cord lipoma. SURGEON: Alex Andrew DO FREIGHT BREAKER: Dr. Moore assisted in retraction, dissection and closure. ANESTHESIA: General. ESTIMATED BLOOD LOSS: Minimal. COMPLICATIONS: None. INDICATIONS: The patient is a 63-year-old male with left inguinal hernia. He understands risks and benefits of procedure and wished to proceed with procedure. Consent was signed in the chart. DESCRIPTION OF PROCEDURE: The patient was taken to the operating suite. He was prepped and draped in sterile fashion. Surgical pause was performed. Local anesthetic was used to infiltrate the left lower quadrant. A 15 blade scalpel was used to make a skin incision and cautery was used to dissect down to the external oblique. The external oblique was then opened up through the external ring. The spermatic cord was then dissected around bluntly with finger dissection and a Dominique drain was placed around it. The cord had a large cord lipoma, which was dissected off and removed. An indirect hernia was present, which the sac was dissected off of the cord, which was then suture ligated and amputated. There was no direct defect. A ProGrip mesh was then cut to size and secured to Jose C's ligament with a 2-0 Vicryl suture and then placed on the floor incorporating around the spermatic cord and placed under the external oblique. The wound was then irrigated with copious amounts of irrigation and suction. The external oblique was then closed recreating the external ring with 3-0 Vicryl. The subcutaneous tissues were then reapproximated using 3-0 Vicryl. Skin was closed using 4-0 Monocryl. The abdomen was then washed and dried and Skin Affix was placed over the incision. The patient tolerated procedure well without complications and taken to recovery room in stable condition. Job ID: [id number] DocumentID: [id number] Dictated Date: 09/14/2018 20:14:36 Material Stress Tester Date: 09/15/2018 03:46:43 Dictated By: ALEX ANDREW DO
== END 2018-09-14 15:35 | disposition home or self-care (01) ==
LOC: SDC 08:59
PROVIDERS: ATTEND Surgery
DX: K40.90 Unilateral inguinal hernia, without obstruction or gangrene, not specified as recurrent (principal); D17.6 Benign lipomatous neoplasm of spermatic cord; I25.10 Atherosclerotic heart disease of native coronary artery without angina pectoris; I10 Essential (primary) hypertension; F17.210 Nicotine dependence, cigarettes, uncomplicated; K21.9 Gastro-esophageal reflux disease without esophagitis; N40.0 Benign prostatic hyperplasia without lower urinary tract symptoms; Z79.899 Other long term (current) drug therapy; Z79.82 Long term (current) use of aspirin; Z95.5 Presence of coronary angioplasty implant and graft
CPT/HCPCS: 87081; 88302; 88304

== ENCOUNTER → 2019-02-06 | Outpatient (CLI) | payer OTHER ==
[~2019-02-06] MED LIST changes: +ACHD5005 PO; +DOCU-143 PO
--- NOTE | 2019-02-06 10:45 | Diagnostic Imaging Report ---
EXAMINATION: CT Chest without contrast (lung screening). TECHNIQUE: Multiple contiguous axial images were obtained through the chest without the use of intravenous contrast according to lung cancer screening protocol. All CT scans use one or more of the following dose optimizing techniques: automated exposure control, MA and/or KvP adjustment based on a patient size and exam type, or iterative reconstruction. HISTORY: 47 pack year history of smoking. COMPARISON: None available. FINDINGS: The lungs are clear without edema or pneumonia. No pleural effusion or pneumothorax. There is a 5 mm left upper lobe nodule (series 2, image 34). There is moderate paraseptal emphysema. Heart size is normal. No pericardial effusion. Aorta is normal in caliber. There is no axillary or supraclavicular lymphadenopathy. There is no mediastinal lymphadenopathy. There is severe coronary artery calcifications. Limited views of the upper abdomen are normal. There are no suspicious osseus lesions. IMPRESSION: 1. No suspicious pulmonary nodules. LUNG-RADS CATEGORY: 2 MODIFIER: None. OTHER SIGNIFICANT FINDINGS: None. Dictated by: Dictated on workstation # [id number]
== END ==
LOC: RAD 09:49
PROVIDERS: ATTEND Nurse Practitioner
DX: R63.4 Abnormal weight loss (principal); R05 Cough; F17.210 Nicotine dependence, cigarettes, uncomplicated

== ENCOUNTER → 2020-02-28 | Outpatient (CLI) | payer OTHER ==
[~2020-02-28] MED LIST changes: -ACET-77 PO; +ACET-78 PO; -HYDR-3062 PO; -TAMS0.4C98 PO; +TMSL.4C PO
== END ==
LOC: CARD 10:00
PROVIDERS: ATTEND Internal Medicine Cardiovascular Disease
DX: I25.10 Atherosclerotic heart disease of native coronary artery without angina pectoris (principal); I35.1 Nonrheumatic aortic (valve) insufficiency
CPT/HCPCS: 93306

== ENCOUNTER → 2020-03-03 | Outpatient (CLI) | payer OTHER ==
[~2020-03-03] VITALS: Ht 177 cm; Wt 85.0 kg
[~2020-03-03] MED LIST changes: +CATHETER FLUSH 10 ML SYR IV PRN; +REGADENOSON 0.4 MG/5 ML SYR (LEXISCAN) IV ONE
[2020-03-03 09:06] VITALS: BP 137/79
--- NOTE | 2020-03-04 08:59 | Cardiology Stress Test Report ---
Stress Test Report Date of Procedure/Referring: Date of Procedure: Mar 03, 2020 PCP Ricardo Hickman MD Admitting Physician Deleted Indications: Coronary artery disease Baseline Blood Pressure: Blood Pressure Systolic: 137 Blood Pressure Diastolic: 79 Vital Signs Date Time Temp Pulse Resp B/P (MAP) Pulse Ox O2 Delivery O2 Flow Rate FiO2 03/03/20 09:06 64 14 137/79 (98) 98 Room Air Baseline Vital Signs Vital Signs Date Time Temp Pulse Resp B/P (MAP) Pulse Ox O2 Delivery O2 Flow Rate FiO2 03/03/20 09:06 64 14 137/79 (98) 98 Room Air Baseline EKG: Baseline EKG: normal sinus rhythm Summary: After explaining the procedure and details to the patient, he signed the consent and was brought to the stress nuclear laboratory. Patient exercised on standard Philip protocol, EKG, heart rate and blood pressure were monitored continuously, resting and stress doses of radio tracer were injected, imaging was acquired and reviewed in the short axis, horizontal long axis and vertical long axis views Patient was able to exercise for a total of 10:15 minutes on Philip protocol, METs 11.9 Maximum heart rate 153 Maximum blood pressure 174/67 Stress EKG, Minimal nondiagnostic changes Recovery EKG, Return to baseline TID: 0.91 SSS: 3 SDS: 3 EF: 55 Conclusion: 1. Excellent exercise tolerance for total of 10 minutes and 15 seconds on standard Philip protocol, 11.9 metastases achieving 98 percent of maximum expected heart rate 2. Appropriate heart rate and blood pressure response to exercise returned to baseline during recovery 3. Minimal nondiagnostic EKG changes with exercise returned to baseline during recovery 4. Mild decreased uptake at the inferoapical segment with mild reversibility. No significant ischemia or infarction on SPECT images 5. Normal left ventricular size, EF 55 percent RICARDO HICKMAN MD Mar 04, 2020 08:59
== END ==
LOC: CARD 08:30
PROVIDERS: ATTEND Internal Medicine Cardiovascular Disease
DX: I25.10 Atherosclerotic heart disease of native coronary artery without angina pectoris (principal)
CPT/HCPCS: 78452; 93017; A9502

== ENCOUNTER → 2020-08-26 | Outpatient (CLI) | payer OTHER ==
[~2020-08-26] MED LIST changes: -CATHETER FLUSH 10 ML SYR IV PRN; -REGADENOSON 0.4 MG/5 ML SYR (LEXISCAN) IV ONE
--- NOTE | 2020-08-26 12:51 | Diagnostic Imaging Report ---
EXAMINATION: CT Lung Screening. INDICATION: 48 pack year smoking history. COMPARISON: 02/06/2019. IMPRESSION: FINDINGS: The small nodular areas of biapical subpleural scarring as well as scattered calcified and noncalcified pulmonary granulomata are unchanged. Subpleural scarring in the left greater than right upper lobes anteriorly is unchanged. No findings of pneumonia or pulmonary edema. No new or suspicious pulmonary nodule. There is no evidence for thoracic adenopathy. No effusion or pneumothorax. No acute or suspicious soft tissue or osseous chest wall pathology. Coronary artery atherosclerotic vascular calcifications with stable normal heart size noted. The visualized unopacified upper abdomen appears nonacute. IMPRESSION: FINDINGS: IMPRESSION:Stable benign air trapping subpleural scarring and scattered benign granulomata no findings of active lung cancer. Continued low-dose annual CT screening follow-up recommended LUNG-RADS CATEGORY:Category 2 benign findings as described MODIFIER:None OTHER SIGNIFICANT FINDINGS:None Dictated by: Dictated on workstation # [id number]
== END ==
LOC: RAD 11:09
PROVIDERS: ATTEND Nurse Practitioner
DX: Z12.2 Encounter for screening for malignant neoplasm of respiratory organs (principal); F17.210 Nicotine dependence, cigarettes, uncomplicated
CPT/HCPCS: 71271

== ENCOUNTER → 2021-09-23 | Outpatient (CLI) | payer OTHER ==
[~2021-09-23] VITALS: Ht 177.8 cm; Wt 87.0 kg
[~2021-09-23] MED LIST changes: +CYCL10TA25 PO; -CYCL10TA9 PO
== END | disposition home or self-care (01) ==
LOC: PREOP 06:02
PROVIDERS: ATTEND Surgery
DX: Z01.818 Encounter for other preprocedural examination (principal)

== ENCOUNTER → 2022-02-11 | Outpatient (CLI) | payer MEDICARE, OTHER | LOC: CARD 09:03 | PROVIDERS: ATTEND Internal Medicine Cardiovascular Disease | DX: I11.9 Hypertensive heart disease without heart failure (principal); I35.1 Nonrheumatic aortic (valve) insufficiency; I25.10 Atherosclerotic heart disease of native coronary artery without angina pectoris | CPT/HCPCS: 93306 ==

== ENCOUNTER 2022-02-17 05:38 | Outpatient (CLI) | payer MEDICARE, OTHER ==
[~2022-02-17] VITALS: Ht 177.8 cm; Wt 87.0 kg
== END 2022-02-17 13:32 | disposition home or self-care (01) ==
LOC: PREOP 05:38
PROVIDERS: ATTEND Surgery
DX: Z01.818 Encounter for other preprocedural examination (principal)

== ENCOUNTER → 2022-02-17 | Outpatient (CLI) | payer MEDICARE, OTHER ==
--- NOTE | 2022-02-17 19:25 | Diagnostic Imaging Report ---
PROCEDURE: CT chest without contrast. TECHNIQUE: Multiple contiguous axial images were obtained through the chest without the use of intravenous contrast. Auto Exposure Controls were utilized during the CT exam to meet ALARA standards for radiation dose reduction. INDICATION: Smoking history. COMPARISON with study 08/26/2020. There is some bilateral upper lobe subpleural reticulation and scarring, chronic. Air trapping is chronic. No suspicious lung mass or dominant pulmonary nodule. No findings of lung cancer. There is no axillary, hilar or mediastinal lymphadenopathy. There are no findings to suggest acute pneumonia or edema. There is no pleural or pericardial effusion. No acute chest wall pathology. The visualized upper abdomen nonacute with a large duodenal diverticulum noted. IMPRESSION: Stable chronic air trapping, subpleural reticulation and scarring with no evidence of lung cancer or acute pathology. Lung RADS category 2, benign findings as described. Continued annual low-dose CT screening follow-up is recommended. Dictated by: Dictated on workstation # [id number]
== END ==
LOC: RAD 10:31
PROVIDERS: ATTEND Nurse Practitioner
DX: Z01.89 Encounter for other specified special examinations (principal); J94.8 Other specified pleural conditions; Z87.891 Personal history of nicotine dependence
CPT/HCPCS: 71250

== ENCOUNTER 2022-03-02 07:53 | Day surgery (SDC) | payer MEDICARE, OTHER ==
[~2022-03-02] VITALS: Ht 177.8 cm; Wt 87.0 kg
[2022-03-02] MEDS ORDERED: LACTATED RINGERS 1,000 ML IV STA (08:02)
[2022-03-02 08:10] VITALS: BP 137/81
[2022-03-02] MEDS ORDERED: HURRICAINE EXT TUBE (BENZOCAINE) XX PRN (08:15)
[2022-03-02] MEDS ORDERED: PROPOFOL INJECTION 50 ML IV ONE (08:54)
[2022-03-02] MEDS ORDERED: MIDAZOLAM 2 MG/2 ML (VERSED) VIAL ONE (08:54)
[2022-03-02 09:35] VITALS: BP 87/60
[2022-03-02] MEDS ORDERED: PANT40TA2 PO (09:37)
--- NOTE | 2022-03-02 09:38 | Discharge Inst-Simple/Standard ---
Discharge Inst-Standard Reconcile Patient Problems Problems Reviewed?: Yes Patient Instructions/Follow Up Plan of Care/Instructions/FU: Follow up with Dr. Andrew in 2 weeks. Activity as Tolerated: Yes Discharge Diet: No Restrictions, Regular Diet ALEX ANDREW DO Mar 02, 2022 09:38
[2022-03-02 09:40] VITALS: BP 94/62
[2022-03-02 09:50] VITALS: BP 99/63
[2022-03-02 10:15] VITALS: BP 104/73
[2022-03-02 10:20] VITALS: BP 104/73
--- NOTE | 2022-03-02 14:53 | Anesthesia-General Post-Op ---
MAC Patient Condition Mental Status/LOC: Same as Preop Cardiovascular: Satisfactory Nausea/Vomiting: Absent Respiratory: Satisfactory Pain: Controlled Complications: Absent Post Op Complications Complications None Follow Up Care/Instructions Patient Instructions None needed. Anesthesiology Discharge Order Discharge Order Patient is doing well, no complaints, stable vital signs, no apparent adverse anesthesia problems. No complications reported per nursing. LOVE PAREDES CRNA Mar 02, 2022 14:53
--- NOTE | 2022-03-02 19:55 | OPERATIVE REPORT ---
DATE OF SERVICE: 03/02/2022 PREOPERATIVE DIAGNOSES: Gastroesophageal reflux disease, history of polyps. POSTOPERATIVE DIAGNOSES: Small hiatal hernia, Schatzki's ring, descending colon polyp, internal hemorrhoid. PROCEDURE: EGD with biopsies, colonoscopy with hot biopsy polypectomy x1. SURGEON: Alex nAdrew DO. ANESTHESIA: Per ELECTRICAL REPAIRER. ESTIMATED BLOOD LOSS: None. COMPLICATIONS: None. INDICATIONS: The patient is a 66-year-old male with GERD and history of polyps. He understands risks and benefits of procedure and wishes to proceed. Consent was signed in chart. DESCRIPTION OF PROCEDURE: The patient was taken to the endoscopy suite, placed in left lateral recumbent position. Timeout was performed. Scope was inserted, the mouth, down the esophagus, stomach and duodenum without difficulty. No polyps, masses, ulcerations of the duodenum. Scope was retracted. The stomach was without polyps, masses or ulcerations. Biopsy antrum was obtained. Scope was retroflexed noting a small hiatal hernia noted. It was returned to its normal position and slowly withdrawn in the distal esophagus, Schatzki's ring present. Couple of biopsies of the Schatzki's ring was obtained. The scope was slowly retracted back until completely removed, noting no other pathology. Digital rectal exam was performed. No palpable polyps, masses or ulcerations. Scope was inserted in the rectum and advanced all the way to cecum with minimal difficulty. Prep was adequate. Scope was slowly retracted back. No polyps, masses or ulcerations within the cecum, ascending, transverse colon. Descending colon, a small polyp was present. A hot biopsy polypectomy was performed. Scope was then continued to slowly retract back noting a diverticula throughout the sigmoid colon [ ] ulcerations. Once in the rectum, scope was retroflexed noting a small internal hemorrhoid. No other pathology. Scope was returned to its normal position, slowly withdrawn until completely removed. The patient tolerated the procedure well with no complications, taken to recovery room in stable condition. RECOMMENDATIONS: The patient has diverticulosis. Would recommend high fiber diet al least 5 years due to history of polyps and polyp present on this one. Any problems before that, he should be reevaluated at that time. The patient will stop [ ] and started on Protonix 40 mg daily. We will see if it improves his symptoms and await biopsy results. Job ID: [id number] DocumentID: [id number] Dictated Date: 03/02/2022 09:39:56 Chemistry Lab Instructor Date: 03/02/2022 19:53:00 Dictated By: ALEX ANDREW DO
== END 2022-03-02 10:25 | disposition home or self-care (01) ==
LOC: ENDO 07:53
PROVIDERS: ATTEND Surgery
DX: Z12.11 Encounter for screening for malignant neoplasm of colon (principal); K22.2 Esophageal obstruction; K44.9 Diaphragmatic hernia without obstruction or gangrene; K63.5 Polyp of colon; K64.8 Other hemorrhoids; K57.30 Diverticulosis of large intestine without perforation or abscess without bleeding; K63.3 Ulcer of intestine; K21.00 Gastro-esophageal reflux disease with esophagitis, without bleeding; K29.70 Gastritis, unspecified, without bleeding; F17.210 Nicotine dependence, cigarettes, uncomplicated; Z95.5 Presence of coronary angioplasty implant and graft
CPT/HCPCS: 88305

== ENCOUNTER → 2022-03-15 | Outpatient (CLI) | payer MEDICARE, OTHER ==
[~2022-03-15] MED LIST changes: +CATHETER FLUSH 10 ML SYR IVP PRN; +PANT40TA2 PO
== END ==
LOC: CARD 08:00
PROVIDERS: ATTEND Internal Medicine Cardiovascular Disease
DX: I10 Essential (primary) hypertension (principal); I25.10 Atherosclerotic heart disease of native coronary artery without angina pectoris

== ENCOUNTER 2022-12-14 14:47 | Emergency (ER) | payer MEDICARE, OTHER ==
[~2022-12-14] VITALS: Ht 177.8 cm; Wt 88.0 kg
[~2022-12-14 14:47] MED LIST changes: -CATHETER FLUSH 10 ML SYR IVP PRN
--- NOTE | 2022-12-14 16:19 | ED GU-Male ---
General Chief Complaint: - Reproductive Stated Complaint: BLOOD IN URINE Nursing Triage Note: Patient c/o blood in his urine on Tuesday, but denies any blood in his urine today. Patient denies any pain. [facility] to be [facility]. Patient denies any Hx. of kidney stones. Patient states he has a Hx. of enlarged prostate. Patient denies any burning with urination. Patient denies any fevers. Source: patient Exam Limitations: no limitations History of Present Illness Date Seen by Provider: Dec 14, 2022 Time Seen by Provider: 16:11 Initial Comments 67-year-old male presents to the ER with reports of small amount of blood in his urine on Tuesday. States that 2 out of the 4 times he urinated on Tuesday he noticed a small amount of pink color in the toilet at the beginning of his stream, states it then dissipated. He reports that this happened approximately 2 to 3 weeks ago as well. He has not had any blood in his urine since Tuesday. Denies any difficulty urinating or dysuria. States that he urinates frequently due to an enlarged prostate. He denies fevers, abdominal pain. He used to see Dr. Esteban, urology, for his enlarged prostate. He has not establish care with a new urologist since Dr. Esteban retired. Allergies and Home Medications Allergies Coded Allergies: No Known Drug Allergies (Unverified , 06/21/17) Patient Home Medication List Home Medication List Reviewed: Yes Acetaminophen (Acetaminophen) 500 Mg Tablet, 500 MG PO BID PRN for PAIN-MILD, (Reported) Entered as Reported by: OTIS TERESA on 09/11/18 1343 Aspirin (Aspirin) 81 Mg Tab.chew, 81 MG PO DAILY, (Reported) Entered as Reported by: OTIS TERESA on 03/09/17 1421 Atorvastatin Calcium (Atorvastatin Calcium) 80 Mg Tablet, 40 MG PO HS, (Reported) Entered as Reported by: SHAQUILLE ZUÑIGA on 06/21/17 1315 Carvedilol (Carvedilol) 6.25 Mg Tablet, 3.125 MG PO BID, (Reported) Entered as Reported by: SHAQUILLE ZUÑIGA on 06/21/17 1315 Cyclobenzaprine HCl (Cyclobenzaprine HCl) 10 Mg Tablet, 10 MG PO BID PRN for SPASMS, (Reported) Entered as Reported by: SHAQUILLE ZUÑIGA on 06/21/17 1315 Fluticasone Propionate (Flonase Allergy Relief) 9.9 Ml [place].susp, 2 SPRAY NS DAILY, (Reported) Entered as Reported by: SHAQUILLE ZUÑIGA on 06/21/17 1315 Nitroglycerin (Nitroglycerin) 0.4 Mg Tab.subl, 0.4 MG SL UD PRN for CHEST PAIN, (Reported) Entered as Reported by: SHAQUILLE ZUÑIGA on 06/21/17 1315 [place] 3 Polyunsat Fatty Acids (Fish Oil 1,000 mg Capsule) 1,000 Mg Cap, 1,000 MG PO DAILY, (Reported) Entered as Reported by: OTIS TERESA on 03/09/17 1421 Pantoprazole Sodium (Protonix) 40 Mg Tablet.dr, 40 MG PO DAILY Prescribed by: ALEX SARKAR on 03/02/22 0937 Review of Systems Review of Systems Constitutional: see HPI Past Ausbcmx-Mpqhck-Koqlfr Hx Patient Social History Tobacco Use?: Yes Tobacco type used: Cigarettes Smoking Status: Current Everyday Smoker Use of E-Cig and/or Vaping dev: No Substance use?: No Alcohol Use?: Yes Alcohol type: Beer Alcohol Frequency: Daily Immunizations Up To Date Tetanus Booster (TDap): Unknown Influenza Vaccine Up-to-Date: No; Not Current First/Initial COVID19 Vaccinat: 2020 Second COVID19 Vaccination Jason: 2020 Third COVID19 Vaccination Date: 2020 Seasonal Allergies Seasonal Allergies: No Past Medical History Surgery/Hospitalization HX: BPH, GERD, HTN Surgeries: Yes (stent x2, DEVIATED SEPTUM) Coronary Stent, Nose Respiratory: No Cardiac: Yes (STENT X2) Coronary Artery Disease, Heart Attack, High Cholesterol, Hypertension Neurological: No Reproductive Disorders: No Sexually Transmitted Disease: No HIV/AIDS: No Genitourinary: Yes Benign Prostatic Hyperpl, Prostate Problems Gastrointestinal: Yes Gastroesophageal Reflux, Chronic Constipation, Polyps Musculoskeletal: Yes Arthritis Endocrine: No HEENT: No Cataract Loss of Vision: Bilateral Hearing Impairment: Denies Cancer: No Psychosocial: No Integumentary: No Blood Disorders: No Adverse Reaction/Blood Tranf: No (N/A) Physical Exam Vital Signs Vital Signs - First Documented 12/14/22 14:57 Temp 36.6 Pulse 93 Resp 16 B/P (MAP) 132/75 (94) O2 Delivery Room Air Capillary Refill : Height, Weight, BMI Height: 5'10.00" Weight: 200lbs. 0.0oz. [id number]; 27.00 BMI Method:Stated General Appearance: WD/WN, no apparent distress Neck: supple, normal inspection Cardiovascular: regular rate, rhythm Respiratory: lungs clear, normal breath sounds, no respiratory distress, no accessory muscle use Back: normal inspection Extremities: normal range of motion, normal inspection Neurologic/Psychiatric: alert, normal mood/affect Skin: normal color, warm/dry Progress/Results/Core Measures Suspected Sepsis SIRS Temperature: Pulse: 93 Respiratory Rate: 16 Blood Pressure 132 /75 Mean: 94 Results/Orders Lab Results Laboratory Tests Test 12/14/22 17:22 Range/Units Urine Color YELLOW Urine Clarity CLEAR Urine pH 5.5 5-9 Urine Specific [place] <=1.005 1.016-1.022 Urine Protein NEGATIVE NEGATIVE Urine Glucose (UA) NEGATIVE NEGATIVE Urine Ketones NEGATIVE NEGATIVE Urine Nitrite NEGATIVE NEGATIVE Urine Bilirubin NEGATIVE NEGATIVE Urine Urobilinogen 0.2 < = 1.0 MG/DL Urine Leukocyte Esterase NEGATIVE NEGATIVE Urine RBC (Auto) 1+ H NEGATIVE Urine RBC NONE /HPF Urine WBC NONE /HPF Urine Crystals NONE /LPF Urine Bacteria NEGATIVE /HPF Urine Casts NONE /LPF Urine Mucus NEGATIVE /LPF Urine Culture Indicated NO My Orders Orders - CHADD HADDAD APRN Ua Culture If Indicated (12/14/22 16:11) Vital Signs/I&O 12/14/22 14:57 Temp 36.6 Pulse 93 Resp 16 B/P (MAP) 132/75 (94) O2 Delivery Room Air Capillary Refill : Blood Pressure Mean: 94 Progress Note : Progress Note Patient seen and evaluated, resting comfortably in recliner, no acute distress. Based on exam and symptoms, urinalysis ordered. 1807 urinalysis reviewed. Shows 1+ RBCs, negative for infection. Results discussed with patient. Patient instructed to follow-up with urology. Discharge instructions and return precautions provided. Departure Impression Primary Impression: Hematuria Disposition: 01 HOME, SELF-CARE Condition: Stable Departure-Patient Inst. Decision time for Depature: 18:07 Referrals: NO,LOCAL PHYSICIAN (PCP/Family) Primary Care Physician Patient Instructions: Blood in Urine (Hematuria), Adult ED Add. Discharge Instructions: Follow-up with a urologist of your choice, below are the phone numbers for [facility] and [facility]. Follow-up with your primary care provider. Return for significant blood in urine, severe abdominal pain, or any other new, concerning, or worsening symptoms. [facility] [address] [facility] [address], [place] [address] [facility]: [address], [place] [address] All discharge instructions reviewed with patient and/or family. Voiced understanding. CHADD HADDAD SOLAR DESIGNER/INSTALLER Dec 14, 2022 16:19
[2022-12-14 18:03] LABS: BILIRUBIN,URINE NEGATIVE (NEGATIVE); CLARITY,URINE CLEAR; COLOR,URINE YELLOW; GLUCOSE, URINE (UA) NEGATIVE (NEGATIVE); KETONES,URINE NEGATIVE (NEGATIVE); LEUKOCYTE ESTERASE ,URINE NEGATIVE (NEGATIVE); NITRITE,URINE NEGATIVE (NEGATIVE); PH,URINE 5.5 (5-9); PROTEIN,URINE NEGATIVE (NEGATIVE)
[2022-12-14 18:04] LABS: BACTERIA,URINE NEGATIVE /HPF
[2022-12-14 18:17] VITALS: BP 127/78
== END 2022-12-14 18:17 | disposition home or self-care (01) ==
LOC: EDUNIT# 14:47 → ER 14:51
DX: R31.9 Hematuria, unspecified (principal); F17.210 Nicotine dependence, cigarettes, uncomplicated
CPT/HCPCS: 81000; 99282

== ENCOUNTER → 2023-02-07 | Outpatient (CLI) | payer OTHER ==
[~2023-02-07] MED LIST changes: +HOLD METFORMIN - RECEIVED CONTRAST 20 ML VIAL IV SCH; +IOHEXOL 350 MG/ML 100 ML (OMNIPAQUE 350) VIAL IV ONE; +NS 100 ML (IVPB) BAG IV ONE
[2023-02-07 08:57] LABS: CREATININE SERUM 1.1 MG/DL (0.60-1.30)
--- NOTE | 2023-02-07 10:04 | Diagnostic Imaging Report ---
PROCEDURE: CT abdomen and pelvis with and without contrast. TECHNIQUE: Precontrast acquisitions were acquired through the abdomen and pelvis. Multiple contiguous axial images were obtained through the abdomen and pelvis after the administration of intravenous contrast. Auto Exposure Controls were utilized during the CT exam to meet ALARA standards for radiation dose reduction. INDICATION: Hematuria. No prior studies are available for comparison. The lung bases are clear. Liver does contain 2 low-attenuation lesions, largest approximately 19 mm in the left lobe, suggestive of cysts. Gallbladder is unremarkable. There is no biliary duct dilatation. Pancreas and spleen are unremarkable. No adrenal mass is detected. No renal calculi are detected. No solid renal mass is identified. Delayed images demonstrate renal collecting systems to be unremarkable. No filling defects or masses are detected. Both ureters are unremarkable. No bladder wall thickening or bladder mass is identified. The prostate gland does appear to be enlarged. Aorta is calcified but nonaneurysmal. No central retroperitoneal or mesenteric lymphadenopathy is detected. Bowel loops are normal caliber. There is generalized colonic diverticulosis, most marked involving the descending and sigmoid colon but no evidence of acute diverticulitis. There is no free fluid or fluid collection identified. No pelvic lymphadenopathy is detected. The bony structures appear nonacute. IMPRESSION: 1. No evidence of urinary tract calculi, mass or obstruction. 2. Uncomplicated diverticulosis. 3. Prostatomegaly. Dictated by: Dictated on workstation # [id number]
== END ==
LOC: RAD 08:28
PROVIDERS: ATTEND Urology
DX: N40.0 Benign prostatic hyperplasia without lower urinary tract symptoms (principal); K57.90 Diverticulosis of intestine, part unspecified, without perforation or abscess without bleeding; R31.9 Hematuria, unspecified
CPT/HCPCS: 36415; 74178; 82565; 84520